=== PATIENT | female | born 1980 | race Two or more races ===

== ENCOUNTER → 2019-12-26 | Outpatient (CLI) | payer OTHER | END | disposition home or self-care (01) | LOC: MAMO-SONO 05-22 11:15 → LAB SALUS 08:56 | PROVIDERS: ATTEND General Practice | DX: Z11.4 Encounter for screening for human immunodeficiency virus [HIV] (principal); Z12.11 Encounter for screening for malignant neoplasm of colon; Z72.51 High risk heterosexual behavior; Z11.3 Encounter for screening for infections with a predominantly sexual mode of transmission; Z11.59 Encounter for screening for other viral diseases; Z13.220 Encounter for screening for lipoid disorders ==

== ENCOUNTER 2021-07-27 10:47 | Outpatient (CLI) | payer OTHER | END 2021-07-27 10:54 | disposition home or self-care (01) | LOC: RAD 10:47 | PROVIDERS: ATTEND Orthopaedic Surgery | DX: M25.542 Pain in joints of left hand (principal); M25.541 Pain in joints of right hand ==

== ENCOUNTER 2021-08-10 08:36 | Outpatient (CLI) | payer OTHER | END 2021-08-10 08:41 | disposition home or self-care (01) | LOC: RAD 08:36 | PROVIDERS: ATTEND Orthopaedic Surgery | DX: S63.521A Sprain of radiocarpal joint of right wrist, initial encounter (principal) ==